=== PATIENT | male | born 1970 | race Caucasian/White ===

== ENCOUNTER 2022-08-04 03:24 | Emergency (ER) | payer BC ==
[2022-08-04] MEDS ORDERED: Dexamethasone 10 MG/ML VIAL ONE (04:23)
== END 2022-08-04 04:30 | disposition home or self-care (01) ==
LOC: CSHERS 03:24
DX: J11.1 Influenza due to unidentified influenza virus with other respiratory manifestations (principal); I10 Essential (primary) hypertension
CPT/HCPCS: 71045; 87804; 96372; J1100